=== PATIENT | male | born 1990 | race Hispanic/Latino ===

== ENCOUNTER 2017-01-25 22:46 | Emergency (ER) | payer OTHER ==
[2017-01-25 22:52] VITALS: BP 132/63; PULSE 72; RESP 16; TEMP 97.6; O2SAT 99
[2017-01-25] MEDS ORDERED: Sodium Chloride 0.9% 1,000 ML IV STA (23:16)
[2017-01-25 23:34] LABS: BASO % 0.3 % (0.0-2.0); EOS # 0.1 K/uL (0.0-0.7); EOS % 2.1 % (0.0-4.0); HEMATOCRIT 41.8 % (35.0-51.0); LYMPH # 1.8 K/uL (1.0-4.3); MEAN CELL VOLUME 85.1 fl (80.0-94.0); MEAN CORPUSCULAR HEMOGLOBIN 28.4 pg (27.0-31.0); MEAN CORPUSCULAR HGB CONC 33.3 g/dL (33.0-37.0); MEAN PLATELET VOLUME 7.9 fl (7.2-11.7); MONO # 0.6 K/uL (0.0-0.8); MONO % 9.4 % (0.0-10.0); NEUT # 3.8 K/uL (1.8-7.0); NEUT % 60.2 % (50.0-75.0); NRBC % 0.1 % (0.0-0.0); RED CELL DISTRIBUTION WIDTH 13.9 % (11.5-14.5); WHITE BLOOD COUNT 6.4 K/uL (4.8-10.8)
[2017-01-25 23:36] LABS: RBC URINE 2 /hpf (0-3); URINE BACTERIA RARE (<OCC); URINE BILIRUBIN NEGATIVE (NEGATIVE); URINE BLOOD LARGE (NEGATIVE); URINE COLOR STRAW (YELLOW); URINE GLUCOSE (UA) NEG (Normal); URINE KETONE NEGATIVE (NEGATIVE); URINE LEUKOCYTE ESTERASE NEG Leu/uL (Negative); URINE PROTEIN 30 mg/dL (NEGATIVE); URINE UROBILINOGEN 0.2-1.0 mg/dL (0.2-1.0); WBC URINE < 1 /hpf (0-5)
[2017-01-25 23:42] LABS: ALB/GLOB RATIO 1.4 (1.0-2.1); ALKALINE PHOSPHATASE 71 U/L (38-126); ALT/SGPT 79 U/L (21-72); AST/SGOT 44 U/L (17-59); BILIRUBIN,TOTAL 0.7 mg/dl (0.2-1.3); BLOOD UREA NITROGEN 25 mg/dl (9-20); CALCIUM 9.6 mg/dL (8.4-10.2); CARBON DIOXIDE 25 mmol/L (22-30); CHLORIDE 102 mmol/L (98-107); GFR AFRICAN-AMERICAN > 60; GLUCOSE,RANDOM 106 mg/dL (75-110); POTASSIUM 4.3 MMOL/L (3.6-5.0); SODIUM 140 mmol/l (132-148); TOTAL PROTEIN 6.8 G/DL (6.3-8.2)
--- NOTE | 2017-01-26 01:16 | ED PDOC ---
HPI: Abdomen Time Seen by Provider: 01/25/17 23:06 Chief Complaint (Nursing): Abdominal Pain Chief Complaint (Provider): Right Groin/Testicular Pain History Per: Patient History/Exam Limitations: no limitations Onset/Duration Of Symptoms: Hrs (x8 hours ago) Outside of [place] travel?: No Current Symptoms Are (Timing): Still Present Severity: Moderate Pain Scale Rating Of: 6 Location Of Pain/Discomfort: RLQ Associated Symptoms: Urinary Symptoms (hematuria; denies dysuria). denies: Fever, Nausea, Vomiting, Diarrhea, Other (shortness of breath, cough) Additional Complaint(s): Ibrahima Pinedo is a 26 year old male, with a past medical history of chronic upper abdominal pain that the patient is currently seeing a gastrointestinal specialist for, who presents to the emergency department for the evaluation of right groin pain that radiates to his right testicle, that the patient has been experiencing for the past 8 hours. Patient reports that he has associated hematuria and describes it as "pink-tinged urination". Denies nausea, vomiting, diarrhea, shortness of breath, fever, cough, or dysuria. Of note, patient reports drinking a lot of water and took 200 mg of Motrin prior to arrival; however, it only provided mild relief, prompting his visit to the emergency department. PMD: none specified Past Medical History Reviewed: Historical Data, Nursing Documentation, Vital Signs Vital Signs: Last Vital Signs Temp 97.6 F 01/25/17 22:49 Pulse 72 01/25/17 22:49 Resp 16 01/25/17 22:49 BP 132/63 01/25/17 22:49 Pulse Ox 99 01/25/17 22:49 - Medical History PMH: No Chronic Diseases - Surgical History Surgical History: No Surg Hx - Family History Family History: States: Unknown Family Hx - Social History Current smoker - smoking cessation education provided: No Ex-Smoker (has not smoked in the last 12 months): No Alcohol: Social Drugs: Denies - Home Medications Home Medications: Ambulatory Orders Medication Instructions Recorded Tamsulosin [Flomax] 0.4 mg PO DAILY #10 cap 01/26/17 traMADol [Ultram] 50 mg PO Q6 PRN #16 tab 01/26/17 - Allergies Allergies/Adverse Reactions: Allergies Allergy/AdvReac Type Severity Reaction Status Date / Time No Known Allergies Allergy Verified 01/25/17 22:49 Review of Systems ROS Statement: Except As Marked, All Systems Reviewed And Found Negative Constitutional: Negative for: Fever Respiratory: Negative for: Cough, Shortness of Breath Gastrointestinal: Positive for: Abdominal Pain (right groin). Negative for: Nausea, Vomiting, Diarrhea Genitourinary Male: Positive for: Hematuria, Scrotal Pain (right testicle). Negative for: Dysuria Physical Exam - Reviewed Nursing Documentation Reviewed: Yes Vital Signs Reviewed: Yes - Physical Exam Appears: Positive for: Non-toxic, No Acute Distress Head Exam: Positive for: ATRAUMATIC, NORMOCEPHALIC Skin: Positive for: Normal Color, Warm, Dry Eye Exam: Positive for: Normal appearance, EOMI Neck: Positive for: Normal, Painless ROM Cardiovascular/Chest: Positive for: Regular Rate, Rhythm. Negative for: Murmur Respiratory: Positive for: Normal Breath Sounds. Negative for: Respiratory Distress Gastrointestinal/Abdominal: Positive for: Normal Exam, Soft. Negative for: Tenderness Male Genital Exam: Positive for: normal genitalia, other (circumcised). Negative for: scrotum tenderness (R), scrotum tenderness (L), testicular tenderness (R), testicular tenderness (L) Back: Positive for: Normal Inspection. Negative for: L CVA Tenderness, R CVA Tenderness Extremity: Positive for: Normal ROM. Negative for: Tenderness Neurologic/Psych: Positive for: Alert, Oriented - Laboratory Results Result Diagrams: 01/25/17 23:29 01/25/17 23:29 - ECG O2 Sat by Pulse Oximetry: 99 (RA) Pulse Ox Interpretation: Normal Medical Decision Making Medical Decision Makin:06 Initial Impression: 26 year old male with acute groin and testicular pain inclusive of hematuria. Initial Plan: * CT Abdomen & Pelvis w/o PO or IV Contrast * CBC * CMP * Urine Dip * Urinalysis * Flomax 0.8 mg PO * Sodium Chloride 0.9% 1,000 ml IV at 1,000 mls/hr * Toradol 10 mg IV/IVP * Ultram 50 mg PO * Reevaluation 01:03 Lab results reviewed. No abnormalities with exception of urination that shows hematuria. 01:03 Patient reports improvement in his pain. Initial dose of Flomax was administered in the emergency department. 01:07 Upon provider reevaluation patient is feeling better, is medically stable, and requires no further treatment in the emergency department at this time. Patient will be discharged home with a prescription for Ultram and Flomax. Counseling was provided and all questions were answered regarding diagnosis and was referred for follow up with urologist. There is agreement to discharge plan. Return if symptoms persist or worsen. Clinical Impression: Ureteral calculus Scribe Attestation: Documented by Ion Tran, acting as a scribe for Ibrahima Pinedo MD. Provider Scribe Attestation: All medical record entries made by the Scribe were at my direction and personally dictated by me. I have reviewed the chart and agree that the record accurately reflects my personal performance of the history, physical exam, medical decision making, and the department course for this patient. I have also personally directed, reviewed, and agree with the discharge instructions and disposition. Disposition - Clinical Impression Clinical Impression: Ureteral calculus - Patient ED Disposition Is Patient to be Admitted: No - Disposition Referrals: Cuba Nails MD [Staff Provider] - Disposition: Routine/Home Disposition Time: :07 Condition: STABLE Prescriptions: Tamsulosin [Flomax] 0.4 mg PO DAILY #10 cap traMADol [Ultram] 50 mg PO Q6 PRN #16 tab PRN Reason: testicular/flank pain Instructions: Ureteral Stones (ED) Forms: [facility] ED School/Work Excuse
--- NOTE | 2017-01-26 09:58 | CT ---
PROCEDURE: CT Abdomen and Pelvis without intravenous or oral contrast HISTORY: renal colic COMPARISON: None. TECHNIQUE: Technique Contiguous axial images of the abdomen and pelvis without intravenous or oral contrast. Radiation dose: Total exam DLP = 673.57 mGy-cm. This CT exam was performed using one or more of the following dose reduction techniques: Automated exposure control, adjustment of the mA and/or kV according to patient size, and/or use of iterative reconstruction technique. FINDINGS: LOWER THORAX: Unremarkable. LIVER: Unremarkable. GALLBLADDER AND BILE DUCTS: Unremarkable. PANCREAS: Unremarkable. No ductal dilatation. SPLEEN: Unremarkable. No splenomegaly. ADRENALS: Unremarkable. KIDNEYS AND URETERS: Right kidney in ureter: 3 mm calculus distal right mild dilatation of the right ureter and collecting system. No upper tract calculi identified. Ureter. Left kidney in ureter: Lower pole calculus 2 mm nonobstructing. No evidence of left hydroureter or hydronephrosis. BLADDER: Unremarkable. No calculus. REPRODUCTIVE: Unremarkable. APPENDIX: Unremarkable. Normal appendix. STOMACH AND BOWEL: Unremarkable. No obstruction. No gross mural thickening. PERITONEUM: Unremarkable. No significant fluid collection. No free air. LYMPH NODES: Unremarkable. No enlarged lymph nodes. VASCULATURE: Unremarkable. No aortic aneurysm. BONES: No acute fracture. OTHER FINDINGS: None . IMPRESSION: Distal right ureteral calculus. 3 mm. Mild proximal hydroureter and hydronephrosis. Incidental finding(s): Nonobstructing 2 mm lower pole calculus left kidney. Concordant results (preliminary interpretation) provided by [facility]. Procedure Completed: 23:47 Preliminary ([facility]) Report: Dictated and Authenticated: 00:01 Final Interpretation: 09:57. January 26, 2017.
== END 2017-01-26 01:02 | disposition home or self-care (01) ==
LOC: H.ER 22:46
DX: N20.1 Calculus of ureter (principal); Z87.891 Personal history of nicotine dependence